=== PATIENT | female | born 1990 | race Caucasian/White ===

== ENCOUNTER 2023-11-16 14:10 | Inpatient (IN) | payer OTHER ==
[2023-11-16 14:39] VITALS: BMI 31.8
[2023-11-16] MEDS ORDERED: Ondansetron PF 4 MG/2 ML Vial IVP PRN (14:57)
[2023-11-16] MEDS ORDERED: Promethazine HCl 25 MG/ML VIAL IM PRN (14:57)
[2023-11-16] MEDS ORDERED: Oxytocin 30 units/NS 500 ML 500 ML IV SCH (15:00)
[2023-11-16 15:49] LABS: Creatinine, Urine 62.73 mg/dL (47-110)
[2023-11-16 16:09] LABS: Hematocrit 34.4 % (34.9-44.5); Hemoglobin 11.9 g/dL (12.0-15.5); Mean Corpuscular HGB CONC 34.6 g/dL (32.0-36.0); Mean Corpuscular Hemoglobin 29.1 pg (27.0-33.0); Mean Corpuscular Volume 84.1 fl (81.6-98.3); Mean Platelet Volume 12.2 fl (7.4-10.4); Platelet Count 187 10x3/uL (150-450); RBC Distribution Width 12.7 % (11.5-14.5); Red Blood Cell (RBC) Count 4.09 10x6/uL (3.90-5.03); White Blood Cell (WBC) Count 8.3 10x3/uL (3.5-10.5)
[2023-11-16 16:44] LABS: ALT (SGPT) 75 U/L (8-55); AST (SGOT) 54 U/L (5-34); Albumin 2.5 g/dL (3.5-5.0); Alkaline Phosphatase 85 U/L (40-110); Anion Gap 14 mmol/L (10-20); BUN (Urea Nitrogen) 7 mg/dL (7.0-18.7); Bilirubin, Total 0.2 mg/dL (0.2-1.2); Calc. Creatinine Clearance 153 mL/min (70-130); Calcium 8.8 mg/dL (7.8-10.44); Carbon Dioxide 19 mmol/L (22-29); Chloride 108 mmol/L (98-107); Estimated GFR 119; Globulin 2.9 g/dL (2.4-3.5); Glucose 66 mg/dL (70-105); Potassium 3.5 mmol/L (3.5-5.1); Protein, Total 5.4 g/dL (6.0-8.3); Sodium 137 mmol/L (136-145)
[2023-11-16] MEDS: hydrALAZINE 20 MG/ML VIAL SLOW IVP PRN (17:12)
[2023-11-16] MEDS: Labetalol HCl 100 MG TAB PO SCH (17:13)
[2023-11-16] MEDS ORDERED: Lorazepam 2 MG/ML VIAL SLOW IVP PRN (17:20)
[2023-11-16] MEDS ORDERED: Calcium Gluc 4.6 MEQ/10 ML (100 MG/ML) SLOW IVP PRN (17:20)
[2023-11-16] MEDS ORDERED: Labetalol HCl 100 MG/20 ML VIAL SLOW IVP PRN ×2 (17:20)
[2023-11-16] MEDS: Magnesium Sulfate 20 gm/500 ml 20 GM/500 ML BAG IVPB SCH (17:41)
[2023-11-16] MEDS: Betamet Acet/Betamet Na Ph 30 MG/5 ML VIAL IM SCH (17:53)
[2023-11-16] MEDS: Acetaminophen 500 MG TAB PO PRN (19:50)
[2023-11-17] MEDS: Labetalol HCl 100 MG TAB PO SCH (06:01)
[2023-11-17 12:32] LABS: Hematocrit 33.1 % (34.9-44.5); Hemoglobin 11.8 g/dL (12.0-15.5); Mean Corpuscular HGB CONC 35.6 g/dL (32.0-36.0); Mean Corpuscular Hemoglobin 30.2 pg (27.0-33.0); Mean Corpuscular Volume 84.7 fl (81.6-98.3); Mean Platelet Volume 12.4 fl (7.4-10.4); Platelet Count 197 10x3/uL (150-450); RBC Distribution Width 12.6 % (11.5-14.5); Red Blood Cell (RBC) Count 3.91 10x6/uL (3.90-5.03); White Blood Cell (WBC) Count 12.6 10x3/uL (3.5-10.5)
[2023-11-17 13:07] LABS: ALT (SGPT) 76 U/L (8-55); AST (SGOT) 48 U/L (5-34); Albumin 2.4 g/dL (3.5-5.0); Alkaline Phosphatase 79 U/L (40-110); Anion Gap 15 mmol/L (10-20); BUN (Urea Nitrogen) 8 mg/dL (7.0-18.7); Bilirubin, Total Less than 0.2 mg/dL (0.2-1.2); Calc. Creatinine Clearance 151 mL/min (70-130); Calcium 7.5 mg/dL (7.8-10.44); Carbon Dioxide 16 mmol/L (22-29); Chloride 106 mmol/L (98-107); Estimated GFR 118; Globulin 2.9 g/dL (2.4-3.5); Glucose 132 mg/dL (70-105); Potassium 3.9 mmol/L (3.5-5.1); Protein, Total 5.3 g/dL (6.0-8.3); Sodium 133 mmol/L (136-145)
[2023-11-17 17:58] LABS: Uric Acid 4.4 mg/dL (2.6-6.0)
[2023-11-19 03:25] LABS: ALT (SGPT) 63 U/L (8-55); AST (SGOT) 37 U/L (5-34); Albumin 2.3 g/dL (3.5-5.0); Alkaline Phosphatase 70 U/L (40-110); Anion Gap 9 mmol/L (10-20); BUN (Urea Nitrogen) 14 mg/dL (7.0-18.7); Bilirubin, Total Less than 0.2 mg/dL (0.2-1.2); Calc. Creatinine Clearance 158 mL/min (70-130); Calcium 7.4 mg/dL (7.8-10.44); Carbon Dioxide 21 mmol/L (22-29); Chloride 109 mmol/L (98-107); Estimated GFR 119; Globulin 2.6 g/dL (2.4-3.5); Glucose 100 mg/dL (70-105); Potassium 4.3 mmol/L (3.5-5.1); Protein, Total 4.9 g/dL (6.0-8.3); Sodium 135 mmol/L (136-145)
[2023-11-19 03:53] LABS: Hematocrit 31.5 % (34.9-44.5); Hemoglobin 10.5 g/dL (12.0-15.5); Mean Corpuscular HGB CONC 33.3 g/dL (32.0-36.0); Mean Corpuscular Hemoglobin 29.1 pg (27.0-33.0); Mean Corpuscular Volume 87.3 fl (81.6-98.3); Platelet Count 189 10x3/uL (150-450); Red Blood Cell (RBC) Count 3.61 10x6/uL (3.90-5.03); White Blood Cell (WBC) Count 12.3 10x3/uL (3.5-10.5)
[2023-11-19 09:57] LABS: Creatinine, Urine 77.4 mg/dL (47-110)
[2023-11-19] MEDS: hydrALAZINE 20 MG/ML VIAL SLOW IVP PRN (14:49)
[2023-11-19] MEDS: Labetalol HCl 100 MG TAB PO SCH ×2 (15:18→22:28)
[2023-11-19] MEDS: hydrALAZINE 20 MG/ML VIAL SLOW IVP SCH (19:47)
[2023-11-19] MEDS ORDERED: hydrALAZINE 20 MG/ML VIAL SLOW IVP PRN ×3 (20:00→22:34)
[2023-11-19] MEDS: Magnesium Sulfate 20 gm/500 ml 20 GM/500 ML BAG ONE (22:28)
[2023-11-19] MEDS ORDERED: Labetalol HCl 100 MG/20 ML VIAL SLOW IVP PRN ×2 (22:34)
[2023-11-19] MEDS ORDERED: Calcium Gluc 4.6 MEQ/10 ML (100 MG/ML) SLOW IVP PRN (22:34)
[2023-11-19] MEDS ORDERED: Lorazepam 2 MG/ML VIAL SLOW IVP PRN (22:34)
[2023-11-19] MEDS ORDERED: Famotidine/PF 20 mg/2ml Vial SLOW IVP PRN (22:35)
[2023-11-19] MEDS ORDERED: Bicitra 30 ML UDCUP PO PRN (22:35)
[2023-11-19] MEDS ORDERED: CEFAZOLIN 2 GM in Sodium Chloride 0.9% 100 ML IVPB SCH (22:45)
[2023-11-20] MEDS ORDERED: diphenhydrAMINE 50 MG/ML VIAL IVP PRN (00:04)
[2023-11-20] MEDS ORDERED: fentaNYL 50 mcg/mL 1 mL Vial SLOW IVP PRN (00:04)
[2023-11-20] MEDS ORDERED: Meperidine HCl/PF 25 MG (1 mL) VIAL SLOW IVP PRN (00:04)
[2023-11-20] MEDS ORDERED: Promethazine HCl 25 MG/ML VIAL IM PRN ×2 (00:04→09:11)
[2023-11-20] MEDS ORDERED: Naloxone HCl 0.4 mg/ml Vial IVP PRN ×2 (00:04)
[2023-11-20] MEDS ORDERED: Moisturizing Cream (Eucerin) 113 GM JAR TOP PRN (00:04)
[2023-11-20] MEDS ORDERED: Naloxone HCl 0.4 mg/ml Vial IV PRN (00:04)
[2023-11-20] MEDS ORDERED: Ondansetron PF 4 MG/2 ML Vial IVP PRN ×3 (00:04→09:11)
[2023-11-20 00:09] LABS: INR-International Normal Ratio 0.8; PTT 22.3 sec (22.0-33.0); Prothrombin Time 9.3 sec (9.5-12.1)
[2023-11-20] MEDS ORDERED: Communication Order-Pharmacy FS SCH (00:15)
[2023-11-20] MEDS ORDERED: Bicitra 30 ML UDCUP PO PRN (06:38)
[2023-11-20] MEDS ORDERED: Famotidine/PF 20 mg/2ml Vial SLOW IVP PRN (06:38)
[2023-11-20 06:42] LABS: Hematocrit 32.7 % (34.9-44.5); Hemoglobin 11.1 g/dL (12.0-15.5); Platelet Count 182 10x3/uL (150-450)
[2023-11-20] MEDS ORDERED: CEFAZOLIN 2 GM in Sodium Chloride 0.9% 100 ML IVPB SCH (06:45)
[2023-11-20] MEDS ORDERED: Lanolin Ointment 7 GM TUBE TOP PRN (09:11)
[2023-11-20] MEDS ORDERED: diphenhydrAMINE 25 MG CAP PO PRN (09:11)
[2023-11-20] MEDS ORDERED: hydrALAZINE 20 MG/ML VIAL SLOW IVP PRN (09:11)
[2023-11-20] MEDS ORDERED: Bisacodyl 10 MG SUPP PR PRN (09:11)
[2023-11-20] MEDS ORDERED: HYDROcodone/Acetaminophen 5/325 mg Tablet PO PRN (09:11)
[2023-11-20] MEDS ORDERED: Simethicone Chewable 80 MG TAB PO PRN (09:11)
[2023-11-20] MEDS ORDERED: Meperidine HCl/PF 25 MG (1 mL) VIAL IM PRN (09:11)
[2023-11-20] MEDS ORDERED: Ketorolac Tromethamine 30 MG (1 mL) VIAL IVP SCH (12:00)
[2023-11-20] MEDS ORDERED: Lorazepam 2 MG/ML VIAL SLOW IVP PRN (12:15)
[2023-11-20] MEDS: Ketorolac Tromethamine 30 MG (1 mL) VIAL IVP SCH (15:28)
[2023-11-20] MEDS: Magnesium Sulfate 20 gm/500 ml 20 GM/500 ML BAG IVPB SCH (16:30)
[2023-11-20] MEDS: Dexamethasone 4 mg/ml Vial ONE (19:23)
[2023-11-20] MEDS: Dexmedetomidine 200 MCG/2 ML VIAL ONE (19:23)
[2023-11-20] MEDS: Phenylephrine 40 MG/NS 250 ML 250 ML ONE (19:24)
[2023-11-20] MEDS: Ondansetron PF 4 MG/2 ML Vial ONE (19:24)
[2023-11-20] MEDS: Sodium Chloride 0.9% 10 ML ONE ×2 (19:24)
[2023-11-20] MEDS: Sodium Bicarbonate 2.5 MEQ/5 ML SDV ONE (19:24)
[2023-11-20] MEDS: Morphine PF 10 MG/10 ML VIAL ONE (19:24)
[2023-11-20] MEDS: Oxytocin 10 UNITS/ML VIAL ONE ×2 (19:24)
[2023-11-20] MEDS: Ketorolac Tromethamine 30 MG (1 mL) VIAL ONE (19:24)
[2023-11-20] MEDS: Prenatal Vitamin 1 TAB PO SCH (19:25)
[2023-11-20] MEDS: Docusate 100 MG CAP PO SCH ×2 (19:25→23:35)
[2023-11-20] MEDS: PHENYLEPHRINE-NS 100 MCG/ML 10 ML SYRINGE ONE (19:25)
[2023-11-20] MEDS: Ferrous Sulfate 325 MG TAB PO SCH ×2 (19:25→23:35)
[2023-11-21 03:40] LABS: Hematocrit 32.1 % (34.9-44.5); Hemoglobin 11.4 g/dL (12.0-15.5); Mean Corpuscular HGB CONC 35.5 g/dL (32.0-36.0); Mean Corpuscular Hemoglobin 30.5 pg (27.0-33.0); Mean Corpuscular Volume 85.8 fl (81.6-98.3); Platelet Count 189 10x3/uL (150-450); RBC Distribution Width 12.5 % (11.5-14.5); Red Blood Cell (RBC) Count 3.74 10x6/uL (3.90-5.03); White Blood Cell (WBC) Count 14.9 10x3/uL (3.5-10.5)
[2023-11-21 03:50] LABS: ALT (SGPT) 61 U/L (8-55); AST (SGOT) 36 U/L (5-34); Albumin 2.3 g/dL (3.5-5.0); Alkaline Phosphatase 67 U/L (40-110); Anion Gap 13 mmol/L (10-20); BUN (Urea Nitrogen) 13 mg/dL (7.0-18.7); Bilirubin, Total 0.2 mg/dL (0.2-1.2); Calc. Creatinine Clearance 145 mL/min (70-130); Carbon Dioxide 22 mmol/L (22-29); Chloride 102 mmol/L (98-107); Estimated GFR 114; Globulin 2.9 g/dL (2.4-3.5); Glucose 81 mg/dL (70-105); Potassium 5.2 mmol/L (3.5-5.1); Protein, Total 5.2 g/dL (6.0-8.3); Sodium 132 mmol/L (136-145)
[2023-11-21 03:53] LABS: Calcium 6.9 mg/dL (7.8-10.44); Critical Call Chemistry NUR.LHA @0353; Magnesium 6.9 mg/dL (1.6-2.6)
[2023-11-21] MEDS: Ibuprofen 800 MG TAB PO SCH (07:42)
[2023-11-21] MEDS ORDERED: Ibuprofen 800 MG TAB PO SCH (14:00)
[2023-11-21] MEDS: Prenatal Vitamin 1 TAB PO SCH (15:27)
[2023-11-21] MEDS: HYDROcodone/Acetaminophen 5/325 mg Tablet PO PRN (22:27)
[2023-11-22] MEDS: Boostrix 0.5 ML (Tdap) VIAL (>/=7 yrs of age) IM ONE (07:12)
[2023-11-23] MEDS: Labetalol HCl 200 MG TAB PO SCH (02:55)
[2023-11-23] MEDS: hydrALAZINE 20 MG/ML VIAL SLOW IVP PRN (09:14)
[2023-11-23 10:17] VITALS: BMI 31.8
[2023-11-24] MEDS: NIFEdipine XL 30 MG ER.TAB PO SCH (14:18)
[2023-11-24] MEDS: Ibuprofen 800 MG TAB PO SCH (23:30)
[2023-11-25] MEDS: NIFEdipine XL 30 MG ER.TAB PO SCH (09:14)
[2023-11-25 16:11] VITALS: BP 118/66; TEMP 98.6
== END 2023-11-25 17:55 | disposition home or self-care (01) | DRG 788 ==
LOC: CSHLD/OP 14:10 → CSHLD 14:58 → CSHANTE 11-18 15:55 → CSHLD 11-19 20:37 → CSHPP 11-21 14:55
PROVIDERS: ADMIT Family Medicine; ATTEND Family Medicine
PROC: 10D00Z1 Extraction of Products of Conception, Low, Open Approach (ICD-10-PCS; principal; 2023-11-20)
DX: O14.14 Severe pre-eclampsia complicating childbirth (principal); O60.14X0 Preterm labor third trimester with preterm delivery third trimester, not applicable or unspecified; Z3A.31 31 weeks gestation of pregnancy; Z37.0 Single live birth
CPT/HCPCS: 36415; 76815; 80053; 82570; 83735; 84156; 84550; 85014; 85018; 85027; 85049; 85610; 85730; 86850; 86900; 86901; 88307; 99285; J0360; J0702; J1100; J1885; J2274; J2405; J2590; J3475